=== PATIENT | male | born 1960 | race Native Hawaiian/Other Pacific Islander ===

== ENCOUNTER 2019-04-12 12:17 | Emergency (ER) | payer BC ==
[~2019-04-12] VITALS: Ht 172.7 cm; Wt 90.7 kg
[2019-04-12 12:32] VITALS: BP 193/91; TEMP 98.3
== END 2019-04-12 13:33 | disposition home or self-care (01) ==
LOC: EDBD 12:17 → ED 12:17
DX: J32.9 Chronic sinusitis, unspecified (principal); F17.210 Nicotine dependence, cigarettes, uncomplicated
CPT/HCPCS: 96372; 99283; J0696; J2930

== ENCOUNTER 2020-04-25 15:10 | Inpatient (IN) | payer BC ==
[~2020-04-25] VITALS: Ht 172.7 cm; Wt 91.9 kg
[2020-04-25 20:43] LABS: PLATELET COUNT 218 K/uL (142-355)
[2020-04-25 21:36] LABS: POTASSIUM 4.3 mmol/L (3.6-5.2)
[2020-04-26] VITALS (7 sets, daily range): BP systolic 131–215; BP diastolic 72–110; TEMP 97.7–98.6; Ht 172.7 cm; Wt 91.9 kg
[2020-04-26] MEDS ORDERED: AZIT250T3 PO (05:35)
[2020-04-26] MEDS ORDERED: MEDROL DOSEPAK4 MG PO (05:36)
[2020-04-26] MEDS ORDERED: AMLODIPINE BESYLATE PO (05:37)
[2020-04-26] MEDS ORDERED: VITAMIN D PO (05:38)
[2020-04-26] MEDS ORDERED: TRAMADOL HYDROC50 MG PO (05:38)
[2020-04-26] MEDS ORDERED: CARV3.12 PO (05:39)
[2020-04-26] MEDS ORDERED: COZAAR100 MG PO (05:39)
[2020-04-26] MEDS ORDERED: HYDROCO/APAP1 T14 PO (05:41)
[2020-04-26 15:57] LABS: PLATELET COUNT 211 K/uL (142-355)
[2020-04-26 16:13] LABS: POTASSIUM 4.3 mmol/L (3.6-5.2)
[2020-04-27 00:04] VITALS: BP 183/87; TEMP 98.4
[2020-04-27 04:00] VITALS: BP 170/90; TEMP 98.7
[2020-04-27 06:51] LABS: PLATELET COUNT 204 K/uL (142-355)
[2020-04-27 07:01] LABS: POTASSIUM 4.7 mmol/L (3.6-5.2)
[2020-04-27 08:00] VITALS: BP 210/90; TEMP 98.3
[2020-04-27 12:00] VITALS: BP 208/98; TEMP 98.7
[2020-04-27 16:00] VITALS: BP 181/76; TEMP 98.6
[2020-04-27 19:55] VITALS: BP 217/97; TEMP 97.7
[2020-04-28] VITALS: BP 212/90; TEMP 98.1
[2020-04-28 12:00] VITALS: BP 193/90; TEMP 98.3
[2020-04-28 16:00] VITALS: BP 183/86; TEMP 98.4
[2020-04-28 17:21] LABS: PLATELET COUNT 190 K/uL (142-355)
[2020-04-28 17:38] LABS: POTASSIUM 4.7 mmol/L (3.6-5.2)
[2020-04-28 19:49] VITALS: BP 176/85; TEMP 98.3
[2020-04-29] VITALS: BP 164/90; TEMP 98.4
[2020-04-29 04:00] VITALS: BP 181/97; TEMP 98
[2020-04-29 08:00] VITALS: BP 203/105; TEMP 97.9
[2020-04-29 09:54] LABS: PLATELET COUNT 270 K/uL (142-355); POTASSIUM 4.2 mmol/L (3.6-5.2)
[2020-04-29 12:00] VITALS: BP 178/100; TEMP 97.7
== END 2020-04-29 16:54 | disposition home or self-care (01) | DRG 192 ==
LOC: MED/SURG 15:10
PROVIDERS: ADMIT Family Medicine
DX: J44.1 Chronic obstructive pulmonary disease with (acute) exacerbation (principal); I10 Essential (primary) hypertension; F32.89 Other specified depressive episodes; G89.29 Other chronic pain; R09.02 Hypoxemia; R06.09 Other forms of dyspnea
CPT/HCPCS: 80053; 82728; 83735; 84100; 85027; 85379; 86140; 87040; 87635; 93005; 94667; 94668; 94760; J0456; J0696; J1650; J2930; U0003

== ENCOUNTER 2020-05-03 07:08 | Outpatient (CLI) | payer BC ==
[~2020-05-03 07:08] MED LIST: AMLODIPINE BESYLATE PO; AZIT250T3 PO; CARV3.12 PO; COZAAR100 MG PO; HYDROCO/APAP1 T14 PO; MEDROL DOSEPAK4 MG PO; TRAMADOL HYDROC50 MG PO; VITAMIN D PO
[2020-05-03 08:23] LABS: PLATELET COUNT 206 K/uL (142-355)
[2020-05-03 08:27] LABS: POTASSIUM 4.7 mmol/L (3.6-5.2); SODIUM 139 mmol/L (136-145)
== END 2020-05-03 20:21 | disposition home or self-care (01) ==
LOC: LABW 07:08
PROVIDERS: Family Medicine
DX: R55 Syncope and collapse (principal); R06.00 Dyspnea, unspecified; R60.0 Localized edema; R80.9 Proteinuria, unspecified
CPT/HCPCS: 36415; 80053; 82550; 82553; 83880; 84484; 85027; 85379

== ENCOUNTER 2020-05-04 08:31 | Outpatient (CLI) | payer BC | END 2020-05-04 23:16 | disposition home or self-care (01) | LOC: LAB 08:31 | DX: R55 Syncope and collapse (principal); R06.00 Dyspnea, unspecified; R60.0 Localized edema; R80.9 Proteinuria, unspecified | CPT/HCPCS: 84156 ==

== ENCOUNTER 2020-05-20 10:11 | Outpatient (CLI) | payer BC | END 2020-05-20 19:01 | disposition home or self-care (01) | LOC: RESP 10:11 | DX: R06.00 Dyspnea, unspecified (principal) ==

== ENCOUNTER 2020-05-26 08:19 | Outpatient (CLI) | payer BC | END 2020-05-26 22:11 | disposition home or self-care (01) | LOC: NM 08:19 | DX: R06.00 Dyspnea, unspecified (principal) | CPT/HCPCS: A9500 ==

== ENCOUNTER 2020-07-19 11:05 | Outpatient (CLI) | payer BC ==
[2020-07-19 11:56] LABS: PLATELET COUNT 237 K/uL (142-355)
[2020-07-19 12:43] LABS: POTASSIUM 4.7 mmol/L (3.6-5.2)
== END 2020-07-19 19:57 | disposition home or self-care (01) ==
LOC: LABW 11:05
PROVIDERS: ATTEND Nurse Practitioner
DX: I12.9 Hypertensive chronic kidney disease with stage 1 through stage 4 chronic kidney disease, or unspecified chronic kidney disease (principal); N18.32 Chronic kidney disease, stage 3b; R53.83 Other fatigue
CPT/HCPCS: 36415; 80053; 81000; 82024; 82043; 82088; 82306; 82330; 82533; 82570; 82607; 82728; 82746; 83036; 83540; 83550; 83735; 83835; 83970; 84100; 84155; 84244; 84436; 84443; 85027; 86038; 86140

== ENCOUNTER 2021-04-25 09:21 | Outpatient (CLI) | payer BC ==
[2021-04-25 10:10] LABS: PLATELET COUNT 193 K/uL (142-355)
[2021-04-25 10:51] LABS: POTASSIUM 4.3 mmol/L (3.6-5.2)
== END 2021-04-25 19:03 | disposition home or self-care (01) ==
LOC: LABW 09:21
PROVIDERS: ATTEND Internal Medicine
DX: I12.9 Hypertensive chronic kidney disease with stage 1 through stage 4 chronic kidney disease, or unspecified chronic kidney disease (principal); N18.32 Chronic kidney disease, stage 3b; R53.83 Other fatigue; Z79.899 Other long term (current) drug therapy
CPT/HCPCS: 36415; 80053; 81000; 82024; 82088; 82306; 82330; 82533; 82607; 82728; 82746; 83036; 83540; 83550; 83735; 83835; 83970; 84100; 84244; 84436; 84443; 85027; 86038; 86140

== ENCOUNTER → 2021-09-04 | Outpatient (CLI) | payer BC | LOC: RAD 19:33 | PROVIDERS: ATTEND Family Medicine | DX: U07.1 COVID-19 (principal) ==

== ENCOUNTER 2021-09-25 13:43 | Observation (INO) | payer BC, OTHER ==
[~2021-09-25] VITALS: Ht 172.7 cm; Wt 82.7 kg
[~2021-09-25 13:43] MED LIST changes: +HYDR10TA47 PO; -HYDROCO/APAP1 T14 PO
[2021-09-25 14:26] LABS: POTASSIUM 5.7 mmol/L (3.6-5.2)
[2021-09-25 18:13] VITALS: BP 146/94; TEMP 97.6; Ht 172.7 cm; Wt 82.7 kg
[2021-09-25 18:49] LABS: PLATELET COUNT 159 K/uL (142-355)
[2021-09-25 19:42] LABS: PARTIAL THROMBOPLASTIN TIME 26.4 SECONDS (24.5-33.6)
[2021-09-25 20:00] VITALS: BP 143/89; TEMP 98
[2021-09-26] VITALS (8 sets, daily range): BP systolic 141–180; BP diastolic 80–101; TEMP 97.4–98.9
[2021-09-26 05:30] LABS: PLATELET COUNT 167 K/uL (142-355)
[2021-09-26 06:02] LABS: POTASSIUM 4.8 mmol/L (3.6-5.2)
[2021-09-26 07:00] LABS: PARTIAL THROMBOPLASTIN TIME 25.3 SECONDS (24.5-33.6)
[2021-09-26] MEDS ORDERED: CLONIDINE HYDR0.2 MG PO (11:46)
[2021-09-26] MEDS ORDERED: CARV12.5 PO (11:47)
[2021-09-26] MEDS ORDERED: CENTRUM SILVER PO (11:48)
[2021-09-26] MEDS ORDERED: VALSARTAN160 MG PO (11:48)
[2021-09-26] MEDS ORDERED: ACID REDUCER20 MG PO (11:49)
[2021-09-27] VITALS: BP 136/94; TEMP 98.3
[2021-09-27 03:25] LABS: PLATELET COUNT 150 K/uL (142-355)
[2021-09-27 03:39] LABS: POTASSIUM 4.8 mmol/L (3.6-5.2)
[2021-09-27 04:00] VITALS: BP 172/97; TEMP 97.7
[2021-09-27 08:00] VITALS: BP 146/105; TEMP 97.9
[2021-09-27 12:00] VITALS: BP 144/99; TEMP 98.8
== END 2021-09-27 17:15 | disposition home or self-care (01) ==
LOC: LABW 13:43 → MED/SURG 16:46
PROVIDERS: Nurse Practitioner Family; ADMIT Family Medicine; ATTEND Family Medicine
DX: J44.1 Chronic obstructive pulmonary disease with (acute) exacerbation (principal); U07.1 COVID-19; R07.9 Chest pain, unspecified; I10 Essential (primary) hypertension; E78.00 Pure hypercholesterolemia, unspecified
CPT/HCPCS: 36415; 80053; 82550; 82728; 83735; 83880; 84100; 84443; 84484; 85027; 85379; 85610; 85730; 86140; 87040; 87635; 93005; 94640; 94664; 94760; 96361; 96365; 96372; 96375; 99220; G0378; J0360; J1644; J1940; U0003

== ENCOUNTER 2021-11-26 07:59 | Outpatient (CLI) | payer BC ==
[~2021-11-26 07:59] MED LIST changes: +ACID REDUCER20 MG PO; +CARV12.5 PO; +CENTRUM SILVER PO; +CLONIDINE HYDR0.2 MG PO; +VALSARTAN160 MG PO
[2021-11-26 08:44] LABS: POTASSIUM 5.1 mmol/L (3.6-5.2)
== END 2021-11-26 20:40 | disposition home or self-care (01) ==
LOC: LABW 07:59
PROVIDERS: ATTEND Student in an Organized Health Care Education/Training Program
DX: R94.4 Abnormal results of kidney function studies (principal); D63.1 Anemia in chronic kidney disease; E79.0 Hyperuricemia without signs of inflammatory arthritis and tophaceous disease; R80.9 Proteinuria, unspecified; N25.81 Secondary hyperparathyroidism of renal origin; E55.9 Vitamin D deficiency, unspecified; E87.5 Hyperkalemia; N18.9 Chronic kidney disease, unspecified; I12.9 Hypertensive chronic kidney disease with stage 1 through stage 4 chronic kidney disease, or unspecified chronic kidney disease
CPT/HCPCS: 36415; 80053; 81000; 82306; 82570; 83735; 83970; 84100; 84156; 84550; 85018

== ENCOUNTER 2021-12-19 14:31 | Outpatient (CLI) | payer BC ==
[2021-12-19 15:18] LABS: POTASSIUM 4.4 mmol/L (3.6-5.2)
== END 2021-12-19 19:00 | disposition home or self-care (01) ==
LOC: LABW 14:31
PROVIDERS: ATTEND Student in an Organized Health Care Education/Training Program
DX: R94.4 Abnormal results of kidney function studies (principal); D63.1 Anemia in chronic kidney disease; E83.39 Other disorders of phosphorus metabolism; E79.0 Hyperuricemia without signs of inflammatory arthritis and tophaceous disease; R80.9 Proteinuria, unspecified; N25.81 Secondary hyperparathyroidism of renal origin; E87.5 Hyperkalemia; E87.2 Acidosis; E78.2 Mixed hyperlipidemia; D50.9 Iron deficiency anemia, unspecified; N18.9 Chronic kidney disease, unspecified; I12.9 Hypertensive chronic kidney disease with stage 1 through stage 4 chronic kidney disease, or unspecified chronic kidney disease
CPT/HCPCS: 36415; 80053; 82570; 84100; 84156

== ENCOUNTER 2022-05-28 15:28 | Outpatient (CLI) | payer OTHER ==
[2022-05-28 16:25] LABS: PLATELET COUNT 227 K/uL (142-355)
[2022-05-28 16:29] LABS: POTASSIUM 4.7 mmol/L (3.6-5.2)
== END 2022-05-28 21:00 | disposition home or self-care (01) ==
LOC: LABW 15:28 → RAD 15:28 → LABW 21:00
PROVIDERS: ATTEND Student in an Organized Health Care Education/Training Program
DX: M54.2 Cervicalgia (principal); M54.51 Vertebrogenic low back pain; N18.5 Chronic kidney disease, stage 5; D63.1 Anemia in chronic kidney disease; E79.0 Hyperuricemia without signs of inflammatory arthritis and tophaceous disease; R80.8 Other proteinuria; N25.81 Secondary hyperparathyroidism of renal origin; E55.9 Vitamin D deficiency, unspecified; E87.5 Hyperkalemia; I12.0 Hypertensive chronic kidney disease with stage 5 chronic kidney disease or end stage renal disease
CPT/HCPCS: 36415; 80053; 81002; 82306; 82570; 83970; 84100; 84156; 84550; 85027

== ENCOUNTER 2022-06-25 16:16 | Outpatient (CLI) | payer BC ==
[2022-06-25 16:32] LABS: PLATELET COUNT 213 K/uL (142-355)
[2022-06-25 16:54] LABS: POTASSIUM 3.9 mmol/L (3.6-5.2)
== END 2022-06-25 20:04 | disposition home or self-care (01) ==
LOC: LABW 16:16
PROVIDERS: ATTEND Student in an Organized Health Care Education/Training Program
DX: I12.0 Hypertensive chronic kidney disease with stage 5 chronic kidney disease or end stage renal disease (principal); N18.5 Chronic kidney disease, stage 5; E83.39 Other disorders of phosphorus metabolism; D63.1 Anemia in chronic kidney disease; E79.0 Hyperuricemia without signs of inflammatory arthritis and tophaceous disease; R80.8 Other proteinuria; N25.81 Secondary hyperparathyroidism of renal origin; E87.5 Hyperkalemia
CPT/HCPCS: 36415; 80053; 83970; 85027

== ENCOUNTER 2022-07-17 14:53 | Outpatient (CLI) | payer BC | END 2022-07-17 19:39 | disposition home or self-care (01) | LOC: RAD 14:53 | PROVIDERS: ATTEND Student in an Organized Health Care Education/Training Program | DX: Z11.1 Encounter for screening for respiratory tuberculosis (principal) ==

== ENCOUNTER 2022-12-07 09:16 | Outpatient (CLI) | payer OTHER, BC | END 2022-12-07 19:13 | disposition home or self-care (01) | LOC: RAD 09:16 | PROVIDERS: ATTEND Nurse Practitioner Family | DX: M79.645 Pain in left finger(s) (principal) ==